=== PATIENT | female | born 1970 | race Caucasian/White ===

== ENCOUNTER → 2018-02-15 16:04 | Outpatient (CLI) | payer OTHER, SELFPAY | PROVIDERS: Family Provider Internal Medicine; PCP Internal Medicine; Visit Provider Internal Medicine | DX: Z12.31 Encounter for screening mammogram for malignant neoplasm of breast (principal) | CPT/HCPCS: 77063; 77067 ==

== ENCOUNTER → 2018-09-14 08:45 | Outpatient (CLI) | payer OTHER, SELFPAY ==
--- NOTE | 2018-09-14 08:48 | BI_ITS ---
MAMMOGRAPHY - UNILATERAL DIAGNOSTIC: RIGHT BREAST REASON FOR EXAM: Female, 48 years old. Right breast lump. PERTINENT HISTORY: Non-contributory. TECHNIQUE: Digital unilateral breast anthony (3D mammographic acquisition) in the CC and MLO projections. 2-D mediolateral oblique (MLO) and craniocaudad (CC) views of both breasts were obtained. CAD: Full Field Digital Mammography with Computer Added Detection was performed. COMPARISON: Comparison is made with prior study dated February 15, 2018 and February 05, 2017. FINDINGS: Breast Composition: The breasts are heterogeneously dense, which may obscure small masses. There is a 1.5 cm x 1.2 cm well-defined nodule in the retroareolar region of the right breast. Correlation with ultrasound is recommended. A tissue clip marker is once again seen in the deep mid lateral portion of the right breast. No other significant abnormalities are identified. BI/DIAG MAMM W/CAD, UNILAT IMPRESSION: The palpable abnormality corresponds to a 1.5 cm x 1.2 cm well-defined nodule. Correlation with ultrasound is recommended. ASSESSMENT CATEGORY: BIRADS Category 0: Incomplete. Need additional imaging evaluation. A letter regarding these results will be sent to the patient by the facility within 30 days. Approximately 10% of breast cancers are not detected by mammography. A normal mammogram should not delay biopsy of a clinically suspicious abnormality. Electronically Signed: Ryoal Suárez, at 10:33 EDT , Service support ,
--- NOTE | 2018-09-14 08:49 | US_ITS ---
STUDY: ULTRASOUND BREAST - RIGHT REASON FOR EXAM: Female, 48 years old. Palpable lump in the right breast. TECHNIQUE: Axial and longitudinal images of the RIGHT breast were performed with a high resolution ultrasound transducer. COMPARISON: Comparison is made with prior ultrasound of the right breast dated January 31, 2016 and prior mammogram done earlier in the day. FINDINGS: RIGHT Breast: Multiple cysts are seen. The largest cyst is located at the 12:00 position of the breast at 1 cm from nipple. This measures 2.3 cm x 1.7 cm x 1.1 cm. Low-level echoes are seen within it. There is a 7 mm x 7 mm x 5 mm cyst at the 10:00 position of the breast at 1 cm from nipple as well as a 4 mm x 4 mm x 4 mm cyst at the 9:00 position of the breast at 1 cm from nipple. US/Breast Limited Unilateral IMPRESSION: 3 cysts are seen in the breast as described. The largest measures 2.3 cm x 1.7 cm x 1.1 cm ASSESSMENT CATEGORY: BIRADS Category 2: Benign. A letter regarding these results will be sent to the patient by the facility within 30 days. Electronically Signed: Royal Suárez, at 10:28 EDT , Service support ,
== END ==
PROVIDERS: Family Provider Internal Medicine; PCP Internal Medicine; Visit Provider Internal Medicine
DX: N63.10 Unspecified lump in the right breast, unspecified quadrant (principal)
CPT/HCPCS: 76642; 77065

== ENCOUNTER → 2019-02-21 16:23 | Outpatient (CLI) | payer OTHER, SELFPAY ==
[2018-09-26 14:16] VITALS: BMI 35.6
--- NOTE | 2019-02-21 16:27 | BI_ITS ---
MAMMOGRAPHY - BILATERAL SCREENING REASON FOR EXAM: Female, 48 years old. Routine annual screening examination. PERTINENT HISTORY: Non-contributory. TECHNIQUE: Digital bilateral breast stefania (3D mammographic acquisition) in the CC and MLO projections. 2-D mediolateral oblique (MLO) and craniocaudad (CC) views of both breasts were obtained. CAD: Full Field Digital Mammography with Computer Added Detection was performed. COMPARISON: Comparison is made with prior study dated September 14, 2018 and February 15, 2018. FINDINGS: Breast Composition: The breasts are heterogeneously dense, which may obscure small masses. Stable 1.5 cm x 1 cm right retroareolar nodule. This was demonstrated to be a cyst on prior sonogram. A tissue clip marker is once again seen in the deep lateral portion of the right breast. No other significant abnormalities are identified. There has been no significant change since the prior study. BI/SCREEN MAMM (CAD) W/STEFANIA BILAT IMPRESSION: Stable bilateral screening mammogram. Yearly follow-up mammogram recommended. (A) ASSESSMENT CATEGORY: BIRADS Category 2: Benign. A letter regarding these results will be sent to the patient by the facility within 30 days. Approximately 10% of breast cancers are not detected by mammography. A normal mammogram should not delay biopsy of a clinically suspicious abnormality. [id number] Electronically Signed: Royal Suárez, at 9:04 EDT , Service support ,
== END ==
PROVIDERS: Family Provider Internal Medicine; PCP Internal Medicine; Referring Provider Internal Medicine; Visit Provider Internal Medicine
DX: Z12.31 Encounter for screening mammogram for malignant neoplasm of breast (principal)
CPT/HCPCS: 77063; 77067

== ENCOUNTER 2019-08-19 11:54 | Emergency (ER) | payer OTHER, SELFPAY ==
[2018-09-26 14:16] VITALS: BMI 35.6
[2019-08-19 11:57] VITALS: BP 141/81; PULSE 91; RESP 18; TEMP 36.7; O2SAT 99; BMI 34.9
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
[2019-08-19] MEDS: Acetaminophen 500 MG Tablet 1000 MG PO (12:37)
[2019-08-19] MEDS: Ondansetron ODT 4 MG Tablet PO (12:37)
== END 2019-08-19 13:42 | disposition home or self-care (01) ==
PROVIDERS: Emergency Provider Physician Assistant Medical; PCP Nurse Practitioner
DX: S09.90XA Unspecified injury of head, initial encounter (principal); V89.2XXA Person injured in unspecified motor-vehicle accident, traffic, initial encounter; Y93.9 Activity, unspecified; Y92.9 Unspecified place or not applicable; Y99.9 Unspecified external cause status
CPT/HCPCS: 99285

== ENCOUNTER → 2019-12-26 11:19 | Outpatient (CLI) | payer OTHER, SELFPAY ==
--- NOTE | 2019-12-26 11:25 | US_ITS ---
STUDY: THYROID ULTRASOUND REASON FOR EXAM: Female, 49 years old. ABNORMAL TSH TECHNIQUE: Ultrasound evaluation of the thyroid was performed with real-time and static vee-scale imaging. COMPARISON: None. FINDINGS: RIGHT LOBE: The right lobe of the thyroid gland measures 3.5 cm x 1 cm x 1 cm. There is a homogeneous echotexture. There are no demonstrated solid, cystic or complex lesions. LEFT LOBE: The left lobe of the thyroid gland measures 3.1 cm x 0.8 cm x 1.0 cm. There is a homogeneous echotexture. There are no demonstrated solid, cystic or complex lesions. ISTHMUS: The isthmus measures 2.0 mm. The regional lymph nodes are normal. US/Thyroid IMPRESSION: Normal ultrasound examination of the thyroid. Electronically Signed: Royal Suárez, at 15:13 EDT , Service support ,
== END ==
PROVIDERS: PCP Nurse Practitioner; Referring Provider Nurse Practitioner; Visit Provider Nurse Practitioner
DX: R94.6 Abnormal results of thyroid function studies (principal); R79.89 Other specified abnormal findings of blood chemistry
CPT/HCPCS: 76536

== ENCOUNTER → 2020-01-02 14:02 | Outpatient (CLI) | payer OTHER, SELFPAY ==
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
== END ==
PROVIDERS: PCP Nurse Practitioner; Referring Provider Chiropractor; Visit Provider Chiropractor
DX: S73.101A Unspecified sprain of right hip, initial encounter (principal); M62.830 Muscle spasm of back; V19.9XXA Pedal cyclist (driver) (passenger) injured in unspecified traffic accident, initial encounter; Y93.55 Activity, bike riding; Y92.9 Unspecified place or not applicable; Y99.9 Unspecified external cause status; M99.01 Segmental and somatic dysfunction of cervical region; M99.03 Segmental and somatic dysfunction of lumbar region; M99.05 Segmental and somatic dysfunction of pelvic region; M99.02 Segmental and somatic dysfunction of thoracic region
CPT/HCPCS: 73502

== ENCOUNTER → 2020-01-09 10:56 | Outpatient (CLI) | payer OTHER, SELFPAY ==
--- NOTE | 2020-01-09 11:12 | MRI_ITS ---
STUDY: MRI BRAIN WITH AND WITHOUT CONTRAST REASON FOR EXAM: Female, 49 years old. Loss of smell x 10years TECHNIQUE: Standardized multiplanar fat and water weighted pulse sequences were obtained. Pt received 17ml DOtarem via IV was administered for the contrast portion of the examination. COMPARISON: April 21, 2013 FINDINGS: Normal size of the ventricles and extra-axial spaces for the patient''s age. There are a limited number of small white matter hyperintensities, distributed throughout the deep white matter tracts of the cerebral hemispheres, consistent with mild chronic white matter ischemic changes. Normal bilateral basal ganglia. Normal thalami. There is no extra-axial fluid accumulation. Normal flow voids within the major intracranial circulation suggesting patency by spin echo criteria. Normal venous enhancement. There is no enhancing intra-axial or extra-axial abnormality. Normal sella turcica, pituitary gland, infundibular stalk, optic chiasm and hypothalamus. Normal tectal plate and pineal gland. Normal midbrain, marva and medulla. Normal cerebellum. Normal basal cisterns. Normal bilateral globes. Normal bilateral optic nerve sheath complexes and optic nerves. Normal bilateral intraconal and extraconal spaces. Normal bilateral extraocular muscles. Normal optic chiasm and post-chiasmatic tracts. Normal sella turcica, pituitary gland, infundibular stalk, and hypothalamus. Normal bilateral cavernous sinuses. Normal tectal plate and pineal gland. There is mild paranasal sinus disease. MRI/Brain W/WO Contrast IMPRESSION: No acute intracranial abnormality or masses. Electronically Signed: Astrid Alas MD at 15:59 EDT Tel , Service support ,
== END ==
PROVIDERS: PCP Nurse Practitioner; Referring Provider Internal Medicine; Visit Provider Internal Medicine
DX: R43.0 Anosmia (principal)
CPT/HCPCS: 70553; A9575

== ENCOUNTER → 2020-01-30 09:07 | Outpatient (CLI) | payer OTHER, SELFPAY ==
--- NOTE | 2020-01-30 09:11 | RAD_ITS ---
STUDY: X-RAY - RIGHT KNEE REASON FOR EXAM: Female, 49 years old. PAIN TECHNIQUE: 4 view(s) of the knee. COMPARISON: None. FINDINGS: Normal visualized distal femur. Normal visualized proximal tibia and fibula. Normal proximal tibiofibular articulation. Normal medial femorotibial compartment. Normal lateral femorotibial compartment. Normal patellofemoral articulation. The soft tissue structures are unremarkable. RAD/Knee 4 or More Views IMPRESSION: Normal x-ray examination of the knee. Electronically Signed: Royal Suárez, at 11:04 EDT , Service support ,
--- NOTE | 2020-01-30 09:11 | RAD_ITS ---
STUDY: X-RAY - LEFT KNEE REASON FOR EXAM: Female, 49 years old. PAIN TECHNIQUE: 4 view(s) of the knee. COMPARISON: None. FINDINGS: The patient is status post prosthesis along the anterior portion of the distal femoral patellar joint. Normal visualized proximal tibia and fibula. Normal proximal tibiofibular articulation. Normal medial femorotibial compartment. Normal lateral femorotibial compartment. Small joint effusion. RAD/Knee 4 or More Views IMPRESSION: Small joint effusion. Status post metallic prosthesis at the patellofemoral joint. Electronically Signed: Royal Suárez, at 11:04 EDT , Service support ,
== END ==
PROVIDERS: PCP Nurse Practitioner; Referring Provider Internal Medicine; Visit Provider Internal Medicine
DX: M25.561 Pain in right knee (principal); M25.562 Pain in left knee
CPT/HCPCS: 73564

== ENCOUNTER → 2020-03-12 16:04 | Outpatient (CLI) | payer OTHER, SELFPAY ==
--- NOTE | 2020-03-12 16:06 | BI_ITS ---
MAMMOGRAPHY - BILATERAL SCREENING REASON FOR EXAM: Female, 50 years old. Routine annual screening examination. PERTINENT HISTORY: Non-contributory. TECHNIQUE: Digital bilateral breast stefania (3D mammographic acquisition) in the CC and MLO projections. 2-D mediolateral oblique (MLO) and craniocaudad (CC) views of both breasts were obtained. CAD: Full Field Digital Mammography with Computer Added Detection was performed. COMPARISON: Comparison is made with prior study dated 02/21/2019 and 09/14/2018. FINDINGS: Breast Composition: The breasts are heterogeneously dense, which may obscure small masses. There are no dominant masses or suspicious calcifications. A tissue clip marker is once again seen in the deep slightly lateral aspect of the right breast. Stable 1.5 some well-defined nodule in the lateral subareolar region of the right breast. No other significant abnormalities are identified. There has been no significant change since the prior study. BI/SCREEN MAMM (CAD) W/STEFANIA BILAT IMPRESSION: Stable bilateral screening mammogram. Yearly follow-up mammogram recommended. (A) ASSESSMENT CATEGORY: BIRADS Category 2: Benign. A letter regarding these results will be sent to the patient by the facility within 30 days. Approximately 10% of breast cancers are not detected by mammography. A normal mammogram should not delay biopsy of a clinically suspicious abnormality. [id number] Electronically Signed: Royal Suárez, at 8:51 EDT , Service support ,
== END ==
PROVIDERS: PCP Nurse Practitioner; Referring Provider Internal Medicine; Visit Provider Internal Medicine
DX: Z12.31 Encounter for screening mammogram for malignant neoplasm of breast (principal)
CPT/HCPCS: 77063; 77067

== ENCOUNTER → 2020-03-19 15:51 | Outpatient (CLI) | payer OTHER, SELFPAY ==
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
== END ==
PROVIDERS: PCP Nurse Practitioner; Referring Provider Internal Medicine; Visit Provider Internal Medicine
DX: Z78.0 Asymptomatic menopausal state (principal); M85.80 Other specified disorders of bone density and structure, unspecified site
CPT/HCPCS: 77080

== ENCOUNTER 2020-08-16 15:36 | Emergency (ER) | payer OTHER, SELFPAY ==
[2020-08-16 15:37] VITALS: BP 119/73; PULSE 75; RESP 22; TEMP 36.8; O2SAT 98; BMI 35.9
--- NOTE | 2020-08-16 15:59 | EKG12_ITS ---
Test Reason : CP Blood Pressure : / mmHG Vent. Rate : 066 BPM Atrial Rate : 066 BPM P-R Int : 170 ms QRS Dur : 094 ms QT Int : 392 ms P-R-T Axes : 044 005 027 degrees QTc Int : 410 ms Normal sinus rhythm Normal ECG Confirmed by ALIRIO JEAN, SHADI ([id number]), proposal editor JENNIFFER GONZALEZ ([id number]) on 08/19/2020 12:16:10 PM Referred By: MARY Confirmed By:SHADI AMEZQUITA MD
--- NOTE | 2020-08-16 16:05 | RAD_ITS ---
STUDY: X-RAY CHEST REASON FOR EXAM: Female, 50 years old. Central chest discomfort TECHNIQUE: Single AP portable view of the chest. COMPARISON: 08/23/2012 FINDINGS: The lungs are clear and expanded. There is no demonstrated pleural abnormality. Normal size heart. Normal mediastinum and anthony. Normal visualized pulmonary arteries. Normal visualized aortic arch and descending thoracic aorta. Normal visualized thoracic spine. Normal visualized ribs, clavicles, and shoulders. There is no demonstrated abnormality of the visualized soft tissue structures of the upper abdomen. RAD/Chest 1 View (Portable) IMPRESSION: Normal x-ray examination of the chest. Electronically Signed: Baldev Brown MD at 16:22 EST Tel , Service support ,
[2020-08-16 16:13] LABS: Absolute Lymphocyte Count 2.18 X10^3/uL (0.83-4.51); Absolute Neutrophil Count 3.1 X10^3/uL (2.0-7.7); Basophil# 0.03 X10^3/uL; Basophil% 0.5 % (0-1); Eosinophil# 0.22 X10^3/uL; Eosinophils% 3.6 % (0-5); Hematocrit 43.2 % (37-47); Hemoglobin 13.8 g/dL (12.0-15.0); Lymphocyte # 2.18 X10^3/ul (4.0); Mean Corp Hgb Conc 31.9 g/dL (32-36); Mean Corpuscular Volume 93.9 fL (81-99); Mean Platelet Vol. 10.7 fl (6.2-12.0); Monocyte# 0.54 X10^3/uL; Monocyte% 8.9 % (0-10); NRBC Flagged by Analyzer 0 % (0-5); Neutrophil # 3.08 X10^3/uL (2.7-7.7); Neutrophil % 50.8 % (47-70); Platelet Count 231 K/mm3 (150-450); RBC Distribution Width CV 12.2 % (11.6-14.6); RBC Distribution Width SD 42.5 fl (35.1-43.9); White Blood Count 6.1 K/mm3 (4.4-11.0)
[2020-08-16 16:17] VITALS: BP 114/71; PULSE 67; RESP 16; O2SAT 97
[2020-08-16 16:20] LABS: ALB/GLOB Ratio 1.2 RATIO (0.9-2.4); AST(SGOT) 13 U/L (15-37); Alanine Aminotransfer ALT/SGPT 22 U/L (13-56); Albumin, Serum 3.8 g/dL (3.2-5.0); Alkaline Phosphatase 65 U/L (45-117); Anion Gap 5 (5-15); BUN 14 mg/dL (7-18); BUN/Creat Ratio 15.3 RATIO (10-20); Calcium,Total 8.9 mg/dL (8.5-10.1); Chloride 107 mmol/L (98-107); Creatinine, Serum 0.92 mg/dL (0.55-1.02); EST Glomerular Filtration Rate 69 mL/min (>60); Est Glom Filt Rate - Afr Amer 83 mL/min (>60); Estimated Creatinine Clearance 63.17 ml/min; Globulin 3.3 g/dL (2.2-4.2); Glucose 85 mg/dL (74-106); Lipase 102 U/L (73-393); Potassium 4.5 mmol/L (3.5-5.1); Protein, Total 7.1 g/dL (6.4-8.2); Sodium Level 140 mmol/L (136-145)
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
[2020-08-16] MEDS: Mag Hydrox/Al Hydrox/Simeth 30 ML UDC PO (16:49)
[2020-08-16 16:51] VITALS: BP 118/76; PULSE 68; RESP 16; O2SAT 97
--- NOTE | 2020-08-16 17:16 | US_ITS ---
HISTORY: Right upper quadrant pain, nausea - COMPARISON: None. TECHNIQUE: Real-time transabdominal imaging of the right upper quadrant was performed. # of images incl. paperwork: 166 FINDINGS: LIVER: Normal size and parenchymal echotexture. No focal lesions are identified. GALLBLADDER: Multiple shadowing gallstones. No abnormal wall thickening or pericholecystic fluid. Sonographic Mauro sign: Negative. CBD/BILE DUCT: The common bile duct is not dilated, measuring 6 mm. There is no intra or extrahepatic biliary ductal dilatation. PANCREAS: Grossly unremarkable, partially obscured by superimposed bowel gas. OTHER: Right kidney is unremarkable without hydronephrosis, measuring 9.7 cm in length. US/Gallbladder IMPRESSION: 1. Cholelithiasis without sonographic evidence for cholecystitis. at 2005 Reported and signed by: Yossi Lorenzana MD Electronically Signed: Yossi Lorenzana MD at 20:04 EST Tel , Service support ,
[2020-08-16 17:51] VITALS: BP 125/81; PULSE 59; RESP 18; O2SAT 98
[2020-08-16 20:07] VITALS: BP 128/77; PULSE 65; RESP 14; O2SAT 98
[2020-08-16 20:57] VITALS: BP 117/78; PULSE 68; RESP 16
== END 2020-08-16 20:59 | disposition home or self-care (01) ==
PROVIDERS: Emergency Provider Emergency Medicine; PCP Internal Medicine
DX: K80.70 Calculus of gallbladder and bile duct without cholecystitis without obstruction (principal); R07.89 Other chest pain; E03.9 Hypothyroidism, unspecified; E66.9 Obesity, unspecified; Z79.890 Hormone replacement therapy; Z79.899 Other long term (current) drug therapy
CPT/HCPCS: 71045; 76705; 80053; 83690; 84484; 85025; 93005; 99284; A4216

== ENCOUNTER → 2020-08-30 11:34 | Outpatient (CLI) | payer OTHER, SELFPAY ==
[2020-08-16 15:37] VITALS: BMI 35.9
--- NOTE | 2020-08-30 11:43 | CDU_ITS ---
Reason For Study: Syncope Rt. Velocities/BP Lt. Velocities/BP Prox CCA 89.1/31.7 cm/sec. Prox CCA 104.8/32.3 cm/sec. Mid CCA 91.7/34.3 cm/sec. Mid CCA 87.6/28.6 cm/sec. Dist CCA 70.8/25.2 cm/sec. Dist CCA 83.9/32.3 cm/sec. Prox ICA 87.1/30 cm/sec. Prox ICA 83.9/23.7 cm/sec. Mid ICA 80.6/38.8 cm/sec. Mid ICA 74.1/37.2 cm/sec. Dist ICA 94.9/44.6 cm/sec. Dist ICA 87.6/42.1 cm/sec. Rt. ICA/CCA = 1.07. Lt. ICA/CCA = 1.00. Prox ECA 76/17.3 cm/sec. Prox ECA 69.1/18.8 cm/sec. Rt. Vert. 42.8/15.4 cm/sec. Lt. Vert. 57.5/28.9 cm/sec. Right Extracranial There is intimal thickening but no significant atherosclerotic plaque noted in the right common carotid artery. There is intimal thickening but no significant atherosclerotic plaque noted in the right internal carotid artery. There is intimal thickening but no significant atherosclerotic plaque noted in the right external carotid artery. Antegrade flow is noted in the right vertebral artery. Left Extracranial There is intimal thickening but no significant atherosclerotic plaque noted in the left common carotid artery. There is intimal thickening but no significant atherosclerotic plaque noted in the left internal carotid artery. There is intimal thickening but no significant atherosclerotic plaque noted in the left external carotid artery. Antegrade flow is noted in the left vertebral artery. Interpretation Summary Intimal thickening but no hemodynamically significant plaque right internal carotid artery with less than 50% stenosis Less than 50% stenosis right external carotid artery Intimal thickening but no hemodynamically significant plaque left internal carotid artery with less than 50% stenosis Less than 50% stenosis left external carotid artery Patent and antegrade vertebral arteries bilaterally Ordering Physician: Adriane Pacheco Referring Physician: Adriane Pacheco Performed By: Linette Clark RVT
--- NOTE | 2020-08-30 11:43 | ECHOCS_ITS ---
Reason For Study: Chest Pain Procedure This was a 2D Doppler, Color Flow transthoracic echocardiogram. The study was technically difficult. Contrast injection was performed. Exam performed in department. Left Ventricle Normal LV size. The estimated ejection fraction is 55 %. No evidence for diastolic dysfunction. No regional wall motion abnormalities noted. Right Ventricle Normal RV size. Normal systolic function. Atria Normal left atrium. Normal right atrium. No doppler evidence for ASD. Bubble contrast study negative for right to left interatrial shunt. Mitral Valve There is no mitral valve stenosis. Trivial mitral valve insufficiency. Tricuspid Valve There is no tricuspid stenosis. Trivial tricuspid valve insufficiency. Unable to estimate RV systolic pressure due to insufficient tricuspid regurgitant envelope. Aortic Valve Trisinus/trileaflet aortic valve. There is no aortic stenosis. No aortic valve insufficiency. Pulmonic Valve There is no pulmonic valvular stenosis. No pulmonic valve insufficiency. Great Vessels Normal aortic root. Pericardium/Pleural No pericardial effusion. Medication 22 gauge I.V. with prn adaptor inserted into right arm. Diluted definity 4ml given slow IV push to enhance endocardial definition. Performed a rapid injection of agitated mix of 9 cc saline and 1cc air to assess for atrial septal defect. MMode/2D Measurements & Calculations LVIDd: 5.1 cm IVSd: 1.0 cm Ao root diam: 3.1 cm LVIDs: 3.8 cm LVPWd: 1.0 cm LA dimension: 3.1 cm RVDd: 3.4 cm FS: 25.6 % LAV(MOD-bp): 41.4 ml LA A4 area: 17.8 cm2 RA A4 area: 10.3 cm2 LAV(MOD-bp) Indexed: 21.4 ml/m2 LAV(MOD-sp2): 29.8 ml LAV(MOD-sp4): 44.9 ml Time Measurements MV dec time: 0.27 sec Doppler Measurements & Calculations MV E max francis: 41.4 cm/sec Lat Peak E' Francis: 13.9 cm/sec Med Peak E' Francis: 6.1 cm/sec MV A max francis: 55.6 cm/sec E/E' lat: 3.0 E/E' med: 6.8 MV E/A: 0.74 MV V2 max: 63.4 cm/sec MV P1/2t max francis: 48.3 cm/sec Ao V2 max: 84.6 cm/sec MV max P.6 mmHg MV P1/2t: 88.5 msec Ao max P.9 mmHg MV V2 mean: 37.8 cm/sec MV dec slope: 159.9 cm/sec2 MV mean P.66 mmHg MV V2 VTI: 15.1 cm MVA(P1/2t): 2.5 cm2 LV V1 max: 75.7 cm/sec MR max francis: 445.2 cm/sec PA V2 max: 57.2 cm/sec LV V1 max P.3 mmHg MR max P.3 mmHg MR mean francis: 361.0 cm/sec MR mean P.2 mmHg MR VTI: 152.9 cm TR max francis: 174.7 cm/sec TR max P.2 mmHg Interpretation Summary The estimated ejection fraction is 55 %. No evidence for diastolic dysfunction. Trivial mitral valve insufficiency. Ordering Physician: Adriane Pacheco Referring Physician: Adriane Pacheco Performed By: Edilberto Galvan [facility]
--- NOTE | 2020-08-30 13:41 | STRESSREP_ITS ---
Stress Test Report Date: 08/30/2020 Procedure: Exercise tolerance test Indications: Chest pain Consent: Per the patient Procedure: The patient exercised on a Fabricio protocol for 8 minutes and 59 seconds achieving a peak heart rate of 171 bpm (100% predicted maximal heart rate) with a peak blood pressure 150/78 mmHg and a peak MET capacity of approximately 10.1 MET's. The baseline ECG demonstrated normal sinus rhythm, possible prior anteroseptal [place]. The peak exercise ECG demonstrated sinus tachycardia with no significant ischemic ST-T changes. [There were no cardiac dysrhythmias pretest, during exercise, or recovery]. The functional capacity was considered normal for age. The patient had intermittent 2/10 chest pain at baseline which increased to 5/10 at peak exercise in the midsternal and upper back region. The examination was discontinued secondary to achieving target heart rate. Impression: 1. Technically adequate (percent predicted maximal heart rate greater than 85%) exercise tolerance test 2. Stress test is positive for exercise-induced chest pain. 3. Stress test test is negative for exercise-induced EKG changes of ischemia. 4. Functional capacity is normal for age This note was generated with [email or web address] software. It may contain incorrect words, spelling, and punctuation that were not noted in checking the note before signing.
== END ==
PROVIDERS: PCP Internal Medicine; Referring Provider Internal Medicine; Visit Provider Internal Medicine
DX: R07.9 Chest pain, unspecified (principal); R55 Syncope and collapse
CPT/HCPCS: 93017; 93306; 93880; Q9957; A4216; C8929

== ENCOUNTER → 2020-09-05 06:04 | Outpatient (CLI) | payer OTHER, SELFPAY ==
[2020-08-16 15:37] VITALS: BMI 35.9
--- NOTE | 2020-09-05 18:08 | STRESSREP ---
Stress Test Report Exercise myocardial perfusion stress test. 50-year-old lady with a history of chest pain. Stress protocol: Resting EKG demonstrates normal sinus rhythm with a rate of 64 bpm normal intervals are noted resting blood pressure is 108/80 mmHg. The patient exercised according to the regular Fabricio protocol for a total duration of 9 minutes. The maximum heart rate attained was 162 bpm which was 95% of max impacted heart rate the maximum workload was 10.1 metabolic equivalents. The patient maintained sinus rhythm throughout the recording. At rest there were no ST or T wave changes noted to suggest ischemia at peak exercise upsloping ST changes only were noted with no meet the criteria for ischemia. The test was terminated due to the target heart rate being achieved. The patient did experience mild increase in chest pain during the exercise. Clinical angina cannot be completely excluded. The peak blood pressure was 140/80 mmHg with a rate-pressure product of 22,400. Myocardial perfusion protocol. 11.9 mCi of technetium 99m sestamibi was injected at rest. The patient exercised according to regular Fabricio protocol and at peak exercise 34.0 mCi of technetium 99m sestamibi was injected stress images were obtained stress and rest images were reconstructed in comparing the short axis vertical and horizontal long axis. Gated images were also obtained Perfusion SPECT analysis: Review of the stress images demonstrate mildly reduced anterior perfusion defect noted on the stress. The resting images demonstrate minimal improvement in the anterior wall. The rest of the linda appear to have a normal perfusion pattern. A small amount of mid anterior ischemia cannot be completely excluded. Gated SPECT analysis: The gated ejection fraction is 63%. Conclusion: Mildly abnormal exercise myocardial perfusion stress test with small amount of mild anterior ischemia. Chest discomfort noted unclear for angina. Good functional rate capacity. This is a low risk scan.
== END ==
PROVIDERS: PCP Internal Medicine; Visit Provider Internal Medicine
DX: R07.9 Chest pain, unspecified (principal)
CPT/HCPCS: 78452; 93017; A9500; A4216

== ENCOUNTER 2020-10-01 06:42 | Day surgery (SDC) | payer OTHER, SELFPAY ==
[2020-09-27 11:11] VITALS: BMI 34.8
[2020-09-27 12:35] LABS: Absolute Lymphocyte Count 2.15 X10^3/uL (0.83-4.51); Absolute Neutrophil Count 3.9 X10^3/uL (2.0-7.7); Basophil# 0.06 X10^3/uL; Basophil% 0.9 % (0-1); Eosinophil# 0.37 X10^3/uL; Eosinophils% 5.2 % (0-5); Hematocrit 44.4 % (37-47); Hemoglobin 14.1 g/dL (12.0-15.0); Lymphocyte # 2.15 X10^3/ul (4.0); Lymphocyte % 30.5 % (19-41); Mean Corp Hgb Conc 31.8 g/dL (32-36); Mean Corpuscular Hgb 30.1 pg (27.0-32.0); Mean Corpuscular Volume 94.7 fL (81-99); Mean Platelet Vol. 10.6 fl (6.2-12.0); Monocyte# 0.53 X10^3/uL; Monocyte% 7.5 % (0-10); NRBC Flagged by Analyzer 0 % (0-5); Neutrophil # 3.92 X10^3/uL (2.7-7.7); Neutrophil % 55.6 % (47-70); Platelet Count 257 K/mm3 (150-450); RBC Distribution Width CV 12.5 % (11.6-14.6); RBC Distribution Width SD 43.1 fl (35.1-43.9); Red Blood Count 4.69 M/mm3 (4.2-5.4); White Blood Count 7.1 K/mm3 (4.4-11.0)
[2020-09-27 13:06] LABS: Anion Gap 2 (5-15); BUN 11 mg/dL (7-18); BUN/Creat Ratio 11.8 RATIO (10-20); Calcium,Total 9.1 mg/dL (8.5-10.1); Chloride 108 mmol/L (98-107); Creatinine, Serum 0.93 mg/dL (0.55-1.02); EST Glomerular Filtration Rate 68 mL/min (>60); Est Glom Filt Rate - Afr Amer 82 mL/min (>60); Glucose 90 mg/dL (74-106); Potassium 4.5 mmol/L (3.5-5.1); Sodium Level 139 mmol/L (136-145)
[2020-10-01 07:01] VITALS: BMI 33.5
--- NOTE | 2020-10-01 08:00 | HP_ITS ---
HPI HPI History of Present Illness Details: Pleasant 50-year-old lady with no previous cardiac history who was been helping midsternal chest discomfort described as radiating to her back associated with some nausea. It does not necessarily occur with exertion. She has also been found by ultrasound to have cholelithiasis without cholecystitis. She is scheduled to possibly undergo a cholecystectomy. As part of her work-up she underwent stress testing where she exercised to 10.1 metabolic equivalents with mild increase in her chest pain during exercise. Angina could not be completely excluded. She was noted to have a perfusion defect in the mid anterior wall suggestive of angina. Ejection fraction was noted to be normal by echocardiogram as well as by stress test. She is here for preoperative evaluation. Her physical exam is unremarkable her electrocardiogram demonstrates sinus rhythm with a rate of 64 bpm and no acute changes. Her blood pressure is under excellent control. Intake Intake Visit Reasons: ABN STRESS (DR CASTILLO) Allergies No Known Allergies Allergy (Verified 09/27/20 11:04) [facility] Medical History Syncope (Chronic) Hyperlipidemia (Chronic) Cholelithiasis (Chronic) Anxiety and depression (Chronic) Fibromyalgia (Chronic) Hypothyroidism (Chronic) Obesity (Chronic) Olfactory agnosia (Chronic) Osteoarthritis (Chronic) Rheumatoid arthritis (Chronic) Thyroid disease (Chronic) Pneumothorax (Resolved 2008) Abnormal mammogram of right breast (Inactive) Surgical History History of colonoscopy (Chronic) History of arthroplasty of left knee (Resolved) History of elbow surgery (Resolved) History of hysterectomy (Resolved) History of open reduction and internal fixation (ORIF) procedure (Resolved) History of shoulder surgery (Resolved) Family History Mother Arthritis Thyroid disorder Heart disease CMP CVA (cerebral vascular accident) Father Thyroid disorder Grandfather Myocardial infarction Social History (Updated 09/27/20 @ 11:[address] Raji Oleary MD) Smoking Status: Never smoker ROS Const Const: Negative for fatigue, weakness, body ache, fever(s), headache(s), chills, frequent falls, night sweats, daytime sleepiness, difficulty sleeping, excessive sweating, weight gain, weight loss, increased appetite, poor appetite, anorexia or other ENT ENT: Negative for headache(s) or balance problems Cardio Chest Pain: Yes Frequency: weekly Character: dull Location: mid sternal Duration: minutes Resp Respiratory: Negative for SOB with activity, SOB at rest, SOB orthopnea\SOB lying down, Cough, Coughing up blood/hemoptysis, chest congestion, pain on inspiration, snoring, stridor, wheezing, crackles, paroxysmal nocturnal dyspnea or other GI GI: Negative nausea, vomiting, heartburn, constipation, belching, bloating, cramping, vomiting blood/hematemesis, bright, red blood in stools, black,tarry stools, loose stools, Difficulty Swallowing or other : Negative for hematuria, frequent nighttime urination/ nocturia, erectile dysfunction or abnormal vaginal bleeding Musc Musc: Negative for muscle aches/ myalgia, muscle weakness, joint pain or balance problems Skin Skin: Negative redness, non-healing lesions, rash, unusual bruising, skin ulcer, wounds, jaundice or other Neuro Neuro: Negative for frequent falls, headache(s) or weakness Endo Endo: Negative for fatigue or excessive sweating Allergy Allergy/Immunology: Negative for rash Cardiology Exam Const Appearance: cooperative, healthy appearing, no acute distress, well developed and well groomed Nutritional Appearance: average body habitus and well nourished Orientation: alert, awake and oriented x3 Head Head: normal to inspection, normocephalic and atraumatic Ears: hearing grossly normal bilaterally and external ears normal Nose: external nose normal, nares normal, nasal mucous membranes and turbinates normal, septum normal, no nasal discharge Face and Sinus: face symmetric Mouth: oral mucosae normal, tongue normal, oropharynx normal and moist mucous membranes Teeth and gingiva: dentition normal Throat: posterior oropharynx normal, tonsils normal and uvula midline Eyes General: appearance normal, both eyes and all related structures Eyelids: eyelids normal Conjunctivae: conjunctivae normal Pupils: PERRL, normal by confrontation and accommodation normal EOM: EOM intact bilaterally Neck Neck: normal visual inspection, trachea midline and no JVD JVD: +5 Carotids: normal carotid upstroke and bounding pulses Chest Chest inspection: normal inspection of the chest, symmetric chest movement and normal respiratory effort Auscultation: Bilateral: Clear to Auscultation Cardio Palpation: normal PMI Rate: regular rate Rhythm: regular rhythm Heart sounds: S1 normal, S2 normal and normal, physiologic split S2; negative rub, gallop or murmur GI GI: normal to inspection, soft, no hepatosplenomegaly and bowel sounds present Neuro General: alert, awake, oriented x3, gait normal, moves all extremities and no focal sensory deficit Skin Skin: no rashes or lesions noted Extremities Pulses: Normal: Right Femoral Pulse, Left Femoral Pulse, Right Dorsalis Pedis Pulse, Left Dorsalis Pedis Pulse, Right Posterior Tibial Pulse, Left Posterior Tibial Pulse, Right Radial Pulse, Left Radial Pulse Lower Extremity Edema: None: Bilateral Musculoskel Musculoskeletal: No joint tenderness Psych Psychological: normal affect Assessment & Plan 1. Chest pain R07.9 Plan She presents with chest discomfort which is somewhat suggestive of angina. She did have a reproduction of the above while she was doing the stress test. The exact etiology is not clear I would recommend that with her abnormal stress test we will proceed with a left heart catheterization and depending on the findings further recommendations will be made. Risk benefits and alternatives have been explained to her she understands and agrees to proceed. Orders Orders: Left Heart Cath/COR/LV Percut Today Basic Metabolic Profile (BMP) Today CBC W/Diff, Automated Today 2. Abnormal nuclear stress test R94.39 Plan She does have an abnormal stress test with anterior ischemia. This will be further evaluated with a cardiac catheterization. Orders Orders: Left Heart Cath/COR/LV Percut Today Basic Metabolic Profile (BMP) Today CBC W/Diff, Automated Today 3. Encounter for pre-operative cardiovascular clearance Z01.810 Plan She is here for preoperative evaluation. Depending on the findings of the cardiac catheterization further recommendations will be made. I would communicate the above with you. Thank you for allowing me to participate in her care. Plan Detail Follow Up prn Coding Level of Care Code Off vis,new,level 4 Diagnoses Chest pain R07.9 Abnormal nuclear stress test R94.39 Encounter for pre-operative cardiovascular clearance Z01.810 Coding Level of Care Code Off vis,new,level 4 Diagnoses Chest pain R07.9 Abnormal nuclear stress test R94.39 Encounter for pre-operative cardiovascular clearance Z01.810 Supplemental Info Supplemental Information Diagnostics Electrocardiogram 08/16/20 Echocardiogram 08/30/20 Stress Test Nuclear Medicine 09/05/20 Stress Test 09/05/20 Chest X-Ray 08/16/20
--- NOTE | 2020-10-01 08:45 | CL.D_ITS ---
Patient Name: TRACY PRABHAKAR Study Date: 10/01/2020 Performing: Raji Oleary MD Ht: 64 inches 162.56 cm : 1970 Wt: 195 lbs 88.45 kg Age: 50 Gender: female BSA: 1.94 PROCEDURE(S) PERFORMED [id number]/COR/LV CLINICAL PROFILE AND INDICATIONS Indications: Suspected CAD Heart Failure: None Stress/Imaging Stress Test w/SPECT MPI: Yes Result: Positive Intermediate RiskStress Test with SP ECT MPI: Positive Intermediate Risk CAD Presentations: Unstable angina. CONCLUSIONS Normal coronary arteries Normal LV size, wall motion,and systolic function RECOMMENDATIONS Medical therapy DESCRIPTION OF PROCEDURE The patient arrived to the procedure lab. The risks and benefits of the procedure as well as a full d escription of our services here and current unavailability of surgical backup were fully explained to the patient and/or their significant other prior to the catheterization. The Timeout was completed, verifying the correct patient and procedure. The patient's procedural site was prepped and draped in the usual fashion. Local anesthetic was given subcutaneously to right radial region with Lidocaine 2% . Using a modified Seldinger technique, arterial access was obtained via the right radial artery, a 6 Fr sheath was inserted. Left Coronary Artery selective angiography was performed in multiple views u sing a 5 Fr. 4.0 Zalma catheter. Right Coronary Artery selective angiography was then performed in mu ltiple views using a 5 Fr. 4.0 Zalma catheter. Left Ventriculography was performed in WALLER projection using a 5 Fr. Pigtail catheter. LV to AO pullback pressures were then recorded.The arterial sheath was pulled and a TR Band was applied for hemostasis CORONARY ANGIOGRAPHY DOMINANCE: Right Dominant LEFT HEART ASSESSMENT Left Ventricular Ejection Fraction: by LV Gram 50 % Global Hypokinesis - Mild Normal Left Ventricular systolic function Normal Left Ventricular systolic function LEFT MAIN: Angiographically normal LEFT ANTERIOR DESCENDING ARTERY: Angiographically normal CIRCUMFLEX ARTERY: Angiographically normal RIGHT CORONARY ARTERY: No significant disease noted COMPLICATIONS No Complications PROCEDURE MEDICATIONS Fentanyl 50 mcg IV Versed 1 mg IV Baby Aspirin (81mg) 1 Tabs PO @ 10/01/2020 07:01:45 Heparin diluted in 23cc Heparinized saline. Patient given 10cc IA of this solution. 10/01/2020 08:04: 20 Verapamil 2.5mg, Ntg 100mcgs, 2000 units of Heparin diluted in 23cc Heparinized saline. Patient give n 10cc IA of this solution. 10/01/2020 08:04:20 SUMMARY OF HEMODYNAMIC DATA Time AIR REST ECG 07:04:29 ECG 07:52:14 AO 100/70 (84) SA 08:10:37 AO 115/79 (95) 08:13:08 LV 103/9, 15 08:18:27 LV 101/9, 13 08:18:34 LV 107/15, 20 08:19:11 LVp 97/13, 19 08:19:17 AOp 103/68 (86) 08:19:22 Signed By Raji Oleary MD On 10/01/2020 08:44:26 Raji Oleary MD
== END 2020-10-01 10:15 | disposition home or self-care (01) ==
LOC: CLSP 06:43
PROVIDERS: PCP Internal Medicine; Referring Provider Internal Medicine Cardiovascular Disease; Visit Provider Internal Medicine Cardiovascular Disease
DX: R07.9 Chest pain, unspecified (principal); R94.39 Abnormal result of other cardiovascular function study; M06.9 Rheumatoid arthritis, unspecified; E78.5 Hyperlipidemia, unspecified; E03.9 Hypothyroidism, unspecified; F32.9 Major depressive disorder, single episode, unspecified; F41.9 Anxiety disorder, unspecified; E66.9 Obesity, unspecified; Z79.82 Long term (current) use of aspirin; Z79.890 Hormone replacement therapy; Z79.899 Other long term (current) drug therapy
CPT/HCPCS: 36415; 80048; 85025; 93458; 99152; 99153; J7040; Q9967; C1769; C1894

== ENCOUNTER → 2021-03-13 15:43 | Outpatient (CLI) | payer OTHER, SELFPAY ==
--- NOTE | 2021-03-13 15:45 | BI_ITS ---
MAMMOGRAPHY - BILATERAL SCREENING REASON FOR EXAM: Female, 51 years old. Routine annual screening examination. PERTINENT HISTORY: Aunt with breast cancer. Prior right stereotactic breast biopsy. TECHNIQUE: Digital bilateral breast stefania (3D mammographic acquisition) in the CC and MLO projections. 2-D mediolateral oblique (MLO) and craniocaudad (CC) views of both breasts were obtained. CAD: Full Field Digital Mammography with Computer Added Detection was performed. COMPARISON: Comparison is made with prior study to 03/12/2020 and 02/21/2019. FINDINGS: Breast Composition: The breasts are heterogeneously dense, which may obscure small masses. There are no dominant masses or suspicious calcifications. A tissue clip marker is once again seen in the deep slightly upper lateral aspect of the right breast. No other significant abnormalities are identified. There has been no significant change since the prior study. BI/SCRN MAMM (CAD)W/STEFANIA BILAT IMPRESSION: Stable bilateral screening mammogram. Yearly follow-up mammogram recommended. (A) ASSESSMENT CATEGORY: BIRADS Category 2: Benign. A letter regarding these results will be sent to the patient by the facility within 30 days. Approximately 10% of breast cancers are not detected by mammography. A normal mammogram should not delay biopsy of a clinically suspicious abnormality. [id number] Electronically Signed: Royal Suárez MD at 8:51 EDT , Service support ,
== END ==
PROVIDERS: PCP Internal Medicine; Referring Provider Internal Medicine; Visit Provider Internal Medicine
DX: Z12.31 Encounter for screening mammogram for malignant neoplasm of breast (principal); Z80.3 Family history of malignant neoplasm of breast
CPT/HCPCS: 77063; 77067

== ENCOUNTER → 2021-12-01 | Outpatient (CLI) | payer OTHER, SELFPAY ==
--- NOTE | 2021-12-01 07:58 | CDU_ITS ---
Reason For Study: Carotid Stenosis Rt. Velocities/BP Lt. Velocities/BP Prox CCA 77/17 cm/sec. Prox CCA 73/28 cm/sec. Mid CCA 81/27 cm/sec. Mid CCA 69/27 cm/sec. Dist CCA 68/25 cm/sec. Dist CCA 66/27 cm/sec. Prox ICA 72/17 cm/sec. Prox ICA 83/24 cm/sec. Mid ICA 72/37 cm/sec. Mid ICA 95/35 cm/sec. Dist ICA 102/46 cm/sec. Dist ICA 66/31 cm/sec. Rt. ICA/CCA = 1.3. Lt. ICA/CCA = 1.4. Prox ECA 78/18 cm/sec. Prox ECA 72/17 cm/sec. Rt. Vert. 38/13 cm/sec. Lt. Vert. 40/18 cm/sec. Right Extracranial There is intimal thickening but no significant atherosclerotic plaque noted in the right common carotid artery. There is intimal thickening but no significant atherosclerotic plaque noted in the right internal carotid artery. There is intimal thickening but no significant atherosclerotic plaque noted in the right external carotid artery. Antegrade flow is noted in the right vertebral artery. Left Extracranial There is intimal thickening but no significant atherosclerotic plaque noted in the left common carotid artery. There is intimal thickening but no significant atherosclerotic plaque noted in the left internal carotid artery. There is intimal thickening but no significant atherosclerotic plaque noted in the left external carotid artery. Antegrade flow is noted in the left vertebral artery. VL/Carotid Duplex Ultrasound Interpretation Summary Intimal thickening of the proximal right internal carotid artery with less than 50% stenosis Less than 50% stenosis right external carotid artery Intimal thickening left proximal internal carotid artery with less than 50% yaya nosis Less than 50% stenosis left external carotid artery Patent and antegrade vertebral arteries bilaterally No change from the previous examination of August 30, 2020 Ordering Physician: Adriane Pacheco Referring Physician: Adriane Pacheco Performed By: Nia Shelley, CEFERINO, RVT
== END | disposition home or self-care (01) ==
PROVIDERS: PCP Internal Medicine; Referring Provider Internal Medicine; Visit Provider Internal Medicine
DX: I65.23 Occlusion and stenosis of bilateral carotid arteries (principal)
CPT/HCPCS: 93880

== ENCOUNTER → 2022-05-18 | Outpatient (CLI) | payer OTHER, SELFPAY ==
[2022-05-18 12:19] LABS: Absolute Lymphocyte Count 1.99 X10^3/uL (0.83-4.51); Absolute Neutrophil Count 3.1 X10^3/uL (2.0-7.7); Basophil# 0.05 X10^3/uL; Basophil% 0.8 % (0-1); Eosinophil# 0.37 X10^3/uL; Eosinophils% 6.3 % (0-5); Hematocrit 43.2 % (37-47); Hemoglobin 14.2 g/dL (12.0-15.0); Lymphocyte # 1.99 X10^3/ul (0.83-4.51); Lymphocyte % 33.8 % (19-41); Mean Corp Hgb Conc 32.9 g/dL (32-36); Mean Corpuscular Hgb 30.6 pg (27.0-32.0); Mean Corpuscular Volume 93.1 fL (81-99); Mean Platelet Vol. 10.9 fl (6.2-12.0); Monocyte% 6.8 % (0-10); NRBC Flagged by Analyzer 0 % (0-5); Neutrophil # 3.07 X10^3/uL (2.7-7.7); Neutrophil % 52.1 % (47-70); Platelet Count 259 K/mm3 (150-450); RBC Distribution Width CV 13.1 % (11.6-14.6); RBC Distribution Width SD 44.5 fl (35.1-43.9); Red Blood Count 4.64 M/mm3 (4.2-5.4); White Blood Count 5.9 K/mm3 (4.4-11.0)
[2022-05-18 12:51] LABS: Insulin 8.3 mU/L (2.6-37.6); Vitamin D,25 Hydroxy 40.2 ng/mL
[2022-05-18 13:35] LABS: ALB/GLOB Ratio 1.2 RATIO (0.9-2.4); AST(SGOT) 16 U/L (15-37); Alanine Aminotransfer ALT/SGPT 29 U/L (13-56); Albumin, Serum 3.3 g/dL (3.2-5.0); Alkaline Phosphatase 60 U/L (45-117); Anion Gap 8 (5-15); BUN 15 mg/dL (7-18); BUN/Creat Ratio 15.8 RATIO (10-20); Calcium,Total 8.4 mg/dL (8.5-10.1); Chloride 110 mmol/L (98-107); Cholesterol 247 mg/dL (200); Creatinine, Serum 0.95 mg/dL (0.55-1.02); EST Glomerular Filtration Rate 66 mL/min (>60); Est Glom Filt Rate - Afr Amer 80 mL/min (>60); Free T3 2.1 pg/mL (2.18-3.98); Globulin 2.7 g/dL (2.2-4.2); Glucose 99 mg/dL (74-106); High Density Lipoprotein 67 mg/dL; Potassium 4.7 mmol/L (3.5-5.1); Sodium Level 139 mmol/L (136-145); T4 Free Direct 0.99 ng/dL (0.76-1.46); Thyroid Stim Hormone (TSH) 1.93 uIU/mL (0.358-3.74); Triglycerides 102 mg/dL; Very Low Density Lipoprotein 20 mg/dL (5-40)
[2022-05-18 13:47] LABS: Hemoglobin A1c 5.5 % (3.8-5.6)
[2022-05-19 21:07] LABS: Thyroid Peroxidase AB < 9 IU/mL (0-34)
[2022-05-20 13:06] LABS: Thyroglobulin Antibody < 1.0 IU/mL (0.0-0.9)
== END | disposition home or self-care (01) ==
LOC: BIMLAB 09:57
PROVIDERS: PCP Internal Medicine; Referring Provider Internal Medicine; Visit Provider Internal Medicine
DX: E03.9 Hypothyroidism, unspecified (principal); M06.9 Rheumatoid arthritis, unspecified; E78.5 Hyperlipidemia, unspecified; E66.9 Obesity, unspecified
CPT/HCPCS: 36415; 80053; 80061; 82306; 83036; 83525; 84439; 84443; 84481; 85025; 86376; 86800

== ENCOUNTER 2022-08-12 14:30 | Outpatient (RCR) | payer OTHER, SELFPAY ==
--- NOTE | 2022-07-23 13:51 | HP.PTEVAL_ITS ---
Patient's Visit Information TRACY PRABHAKAR is a 52 year old F referred to Physical Therapy by JERRY PEREZ DO with a diagnosis of Plantar fasciitis, M72.2. Date of Evaluation: 07/23/22 Physical Therapist: Ascencion Stack - Visit Plan Frequency: 1-2x /Week Duration: 6 Weeks Plan: Continue with calf/foot stretches, ankle/foot strengthening, and balance exercises. Use manual therapy and modalities as needed for pain control. - Subjective Pt. is a 52 y.o. female who is having left heel and plantar pain which has been going on since last summer with no specific injury that she is aware of. Pt. PLOF includes no history of foot pain in the past before this. She had recent MRI of her left foot which showed plantar fasciitis and small cyst. She also had recent cortisone shot in her heel which has helped. She also has night splints that she wears which also help. Pt. denies any numbness or tingling in her foot. She has difficulty with standing for long periods of time, walking longer than a couple miles, first step in the morning, house work, and work activity. 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 Her goal with physical therapy is to be able to walk three miles again like she used to. She has had p revious physical therapy in the past for multiple things. Pt. rates left foot pain at 4/10, at worst 9/10, at best 2/10 and describes the pain as sharp. Pt. will take Aleve for pain. Her PMH includes left TKR, bilateral knee arthroscopic surgeries, left elbow surgery, gall bladder removed, hysterectomy, and left shoulder surgery. Pt. hobbies include biking, hiking, and walking. - Objective Palpation- Mild tenderness over plantar aspect of left foot. Left ankle ROM DF 12 degrees, PF 40 degrees, Inversion 40 degrees, Eversion 20 degrees. Right ankle ROM DF 13 degrees, PF 42 degrees, Inversion 46 degrees, Eversion 20 degrees. Left LE strength hip flexion 5/5, abduction 5/5, adduction 5/5, extension 5/5, knee flexion 5/5, knee extension 5/5, ankle DF 5/5, ankle PF 4+/5, Inversion 5/5, Eversion 5/5, big toe extension 5/5. Right LE strength hip flexion 5/5, abduction 5/5, adduction 5/5, extension 5/5, knee flexion 5/5, knee extension 5/5, ankle DF 5/5, ankle PF 5/5, Inversion 5/5, Eversion 5/5, big toe extension 5/5. Tandem stance on right [30 secs], left [30 secs]. SLS on right [30 secs], left [17 secs]. Sensation- WNL bilateral lower extremities. Special tests- Anterior drawer [-], Metatarsal squeeze [-], Windlass [-], Talar tilt [- ]. Gait- Pt. ambulates with no gait deviations. - Balance/Special Test Scores Lower Extremity Functional Score: 56 - Goals Goal 1:: Pt. will be independent with home exercise program. Goal Time Frame: 4-6 Weeks Goal 2:: Pt. will be able to stand at least 1 hour with no left foot pain. Goal Time Frame: 4-6 Weeks Goal 3:: Pt. will be able to walk three miles with no left foot pain. Goal Time Frame: 4-6 Weeks Goal 4:: Pt. will report no pain with first step in the morning when she wakes up. Goal Time Frame: 4-6 Weeks Goal 5:: Pt. will rate pain at worst at 3/10 with ADL's and IADL's. Goal Time Frame: 4-6 Weeks Goal 6:: Pt. will improve LEFS score < 15% in order to improve ADL's. Goal Time Frame: 4-6 Weeks - Rehabilitation Potential Physical Therapy Diagnosis: Decreased left ankle strength, balance, and pain Rehabilitation Potential: Good - Anticipated Interventions Patient/Client Instruction: Educate patient on: Condition, Plan of Care, Benefits of Fitness Program For the Purpose of:: To decrease pain, To improve ability to perform ADL's, To improve performance and independence with ADL's, To assume or resume ADL's, To improve tolerance to ADL's Therapeutic Exercise to Include: Strength training, Balance training, Flexibilty training, Gait and locomotor training, Active ROM Comment: Continue with ankle/foot stretching, ankle/foot strengthening, and balance exercises. For the Purpose of:: To decrease pain, To increase ROM, To improve ability to perform ADL's, To improve performance and independence with ADL's, To increase flexibility/ROM, To improve safety with gait, To assume or resume ADL's, To improve tolerance to ADL's Functional Training to Include: ADL Training, Gait training For the Purpose of:: To decrease pain, To improve ability to perform ADL's, To improve performance and independence with ADL's, To increase flexibility/ROM, To assume or resume ADL's, To improve tolerance to ADL's Manual Therapy Techniques to Include: Passive ROM, Soft tissue mobilization For the Purpose of:: To decrease pain, To increase ROM, To improve ability to perform ADL's, To improve performance and independence with ADL's, To assume or resume ADL's, To improve tolerance to ADL's Cryotherapy (ice pack, ice massage): Yes For the Purpose of:: To decrease pain, To improve ability to perform ADL's, To improve performance and independence with ADL's, To assume or resume ADL's, To improve tolerance to ADL's Thank you for the opportunity to evaluate your patient. For Medicare and Medicare HMO plans, please review the plan of care and approve it. It will need to be FAXED BACK to us at [phone] for Medicare purposes. For Medicare only, by signing this I certify the plan of care. Please let me know if there are questions or concerns regarding this plan of care. Physician Signature: Date:
--- NOTE | 2023-01-04 12:51 | HP.PT.NRP ---
Patient Information Patient Information: TRACY PRABHAKAR was seen in my office for initial evaluation on 07/23/22. The following Plan of Care was established for this patient: POC Established Initial Frequency: 1-2x /Week Initial Duration: 6 Weeks Anticipated Interventions Patient/Client Instruction: Educate patient on: Condition, Plan of Care and Benefits of Fitness Program For the Purpose of:: To decrease pain, To improve ability to perform ADL's, To improve performance and independence with ADL's, To assume or resume ADL's and To improve tolerance to ADL's Therapeutic Exercise to Include: Strength training, Balance training, Flexibilty training, Gait and locomotor training and Active ROM For the Purpose of:: To decrease pain, To increase ROM, To improve ability to perform ADL's, To improve performance and independence with ADL's, To increase flexibility/ROM, To improve safety with gait, To assume or resume ADL's and To improve tolerance to ADL's Functional Training to Include: ADL Training and Gait training For the Purpose of:: To decrease pain, To improve ability to perform ADL's, To improve performance and independence with ADL's, To increase flexibility/ROM, To assume or resume ADL's and To improve tolerance to ADL's Manual Therapy Techniques to Include: Passive ROM and Soft tissue mobilization For the Purpose of:: To decrease pain, To increase ROM, To improve ability to perform ADL's, To improve performance and independence with ADL's, To assume or resume ADL's and To improve tolerance to ADL's Cryotherapy (ice pack, ice massage): Yes For the Purpose of:: To decrease pain, To improve ability to perform ADL's, To improve performance and independence with ADL's, To assume or resume ADL's and To improve tolerance to ADL's Last Seen Last Seen: This patient was last seen in our office . Pertinent comments regarding their Physical therapy will appear below: Patient to continue HEP and is appropriate to be d/c. At this point I will be discontinuing this patient from physical therapy. I would be happy to see this patient again in the future if found appropriate by the physician. Thank you! Sobia Mathew, DPT Balance/Gait/Functional tests Balance/Special Test Scores Lower Extremity Functional Score: 56
== END 2022-08-12 19:00 | disposition home or self-care (01) ==
LOC: PT 14:30
PROVIDERS: PCP Internal Medicine; Visit Provider Orthopaedic Surgery
DX: M72.2 Plantar fascial fibromatosis (principal)
CPT/HCPCS: 97035; 97110; 97161

== ENCOUNTER 2025-01-16 16:09 | Emergency (ER) | payer OTHER, SELFPAY ==
[2025-01-16] VITALS (12 sets, daily range): BP systolic 105–140; BP diastolic 82–94; PULSE 76–102; RESP 16–26; TEMP 36.6–36.8; O2SAT 96–100; BMI 36.7
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
[2025-01-16 17:28] LABS: Hematocrit 41.4 % (37-47); Hemoglobin 13.6 g/dL (12.0-15.0); Immature Granulocytes Count 0.010 X10^3/uL (0.0-0.0); Mean Corp Hgb Conc 32.9 g/dL (32-36); Mean Corpuscular Volume 90.0 fL (81-99); Mean Platelet Vol. 10.7 fl (6.2-12.0); NRBC Flagged by Analyzer 0 % (0-5); Platelet Count 233 K/mm3 (150-450); RBC Distribution Width CV 12.9 % (11.6-14.6); RBC Distribution Width SD 42.5 fl (35.1-43.9); Red Blood Count 4.60 M/mm3 (4.2-5.4); White Blood Count 7.1 K/mm3 (4.4-11.0)
--- NOTE | 2025-01-16 17:47 | ED.RN ---
LAB CALLED FOR INITIAL TROPONIN LISTED STILL RECEIVED. RESPONSE IT'S RUNNING
[2025-01-16 17:50] LABS: AST(SGOT) 19 U/L (<=31); Alanine Aminotransfer ALT/SGPT 21 U/L (<=34); Albumin, Serum 4.2 g/dL (3.5-5.0); Alkaline Phosphatase 84 U/L (35-104); Anion Gap 12 (5-15); BUN 11 mg/dL (4-19); BUN/Creat Ratio 10.9 RATIO (10-20); Calcium,Total 9.3 mg/dL (7.6-11.0); Carbon Dioxide 20.9 mmol/L (21.0-32.0); Chloride 107 mmol/L (98-108); Estimated Creatinine Clearance 69.96 ml/min (50-250); Globulin 2.7 g/dL (2.2-4.2); Glucose 94 mg/dL (70-99); Potassium 4.2 mmol/L (3.3-5.1)
[2025-01-16 18:19] LABS: Troponin T High Sensitivity < 6 ng/L (<=14)
[2025-01-16 19:09] LABS: Troponin T High Sens 2 HR 6 ng/L (<=14)
[2025-01-16] MEDS: Orphenadrine 60 MG/2 ML Ampul IV (19:15)
== END 2025-01-16 20:02 | disposition home or self-care (01) ==
PROVIDERS: Emergency Provider Emergency Medicine; Visit Provider Emergency Medicine
DX: M62.838 Other muscle spasm (principal); E78.5 Hyperlipidemia, unspecified; R51.9 Headache, unspecified; V53.5XXA Driver of pick-up truck or van injured in collision with car, pick-up truck or van in traffic accident, initial encounter; Y92.410 Unspecified street and highway as the place of occurrence of the external cause; E03.9 Hypothyroidism, unspecified; Z79.890 Hormone replacement therapy; Z96.652 Presence of left artificial knee joint; Z90.710 Acquired absence of both cervix and uterus
CPT/HCPCS: 70450; 71250; 72125; 80053; 84484; 85025; 93005; 96374; 96375; 99285; A4216; J2405